=== PATIENT | male | born 1975 | race American Indian/Alaskan Native ===

== ENCOUNTER 2017-05-17 09:44 | Emergency (ER) | payer SELFPAY ==
[2017-05-17 09:59] VITALS: BP 112/73
[2017-05-17] MEDS ORDERED: MOTRIN PO ONE (11:29)
--- NOTE | 2017-05-17 11:30 | Emergency Department Report ---
Abscess Boil HPI - HPI Chief Complaint: Skin/Abscess/Foreign Body Stated Complaint: RT SHOULDER PAIN/SWELLING Time Seen by Provider: 05/17/17 11:28 Duration: >1 Week Location: Back Severity: Moderate History: Yes Pain, Yes Previous History, No Fever, No Purulent Drainage, No Numbness, No Foreign Body, No Insect Bite HPI: 41-year-old male past medical history hypertension presents with complaint of cyst/boil to his upper back region on upper right trapezius/shoulder region. Patient states that he has had a cyst there for nearly a year but it had began to hurt him over the last week. Noticed skin became slightly red around it. Denies any fever or chills. Denies any purulent drainage. Says that it formed an abscess head which has yet to drain. Golf ball sized abscess visible on patient's right lateral neck/shoulder region on trapezius area. Home Medications: Previous Rx's Medication Instructions Recorded Last Taken Type Ibuprofen [Motrin] 600 mg PO Q8H PRN #25 tablet 05/17/17 Unknown Rx Sulfamethoxazole/Trimethoprim 1 each PO BID #14 tablet 05/17/17 Unknown Rx [Bactrim DS TAB] Allergies/Adverse Reactions: Allergies Allergy/AdvReac Type Severity Reaction Status Date / Time Penicillins Allergy Swelling Verified 05/17/17 09:55 ED Review of Systems ROS: Stated complaint: RT SHOULDER PAIN/SWELLING Other details as noted in HPI Constitutional: denies: chills, fever Eyes: denies: eye pain, eye discharge, vision change ENT: denies: ear pain, throat pain Respiratory: denies: cough, shortness of breath, wheezing Cardiovascular: denies: chest pain, palpitations Endocrine: no symptoms reported Gastrointestinal: denies: abdominal pain, nausea, diarrhea Genitourinary: denies: urgency, dysuria Musculoskeletal: denies: back pain, joint swelling, arthralgia Skin: lesions (sebaceous cyst right shoulder). denies: rash Neurological: denies: headache, weakness, paresthesias Psychiatric: denies: anxiety, depression Hematological/Lymphatic: denies: easy bleeding, easy bruising ED Past Medical Hx - Past Medical History Previous Medical History?: No - Surgical History Past Surgical History?: No - Social History Smoking Status: Never Smoker Substance Use Type: None - Medications Home Medications: Home Medications Medication Instructions Recorded Confirmed Last Taken Type Ibuprofen [Motrin] 600 mg PO Q8H PRN #25 tablet 05/17/17 Unknown Rx Sulfamethoxazole/Trimethoprim 1 each PO BID #14 tablet 05/17/17 Unknown Rx [Bactrim DS TAB] ED Abscess Boil Physical Exam - Exam General: Vital signs noted. No distress. Alert and acting appropriately. Front/Back of Body, Lg (Color): 1 - Golf ball sized abscess visible in this area. Some surrounding cellulitis. Size: 5 cm Exam: Yes Tenderness, Yes Fluctuance, Yes Normal Neurologic Exam, Yes Normal Circulation, No Surrounding Cellulites/Erythema, No Lymphangitis, No Crepitation , No Heart Murmur Exam: Visible golf ball size abscess in the right upper back/ posterior shoulder region. Tender, fluctuant, mild surrounding cellulitis. Measures approximately 5-7 cm in diameter I & D Note - I & D Note I & D Note: Area infiltrated with lidocaine 2% no epi good anesthesia achieved horizontal stab incision made approximately 1.5-2 cm in length. Moderate amount of purulent and sebaceous drainage from wound site. At least 7-8 mL of drainage. Significant reduction of fluctuance and tenderness of abscess after incision and drainage. Wound culture sent. Approximately 7 inches of half- inch iodoform gauze packed into the wound. ED Course Vital Signs 05/17/17 09:56 Temperature 98.1 F Pulse Rate 65 Respiratory 17 Rate Blood Pressure 112/73 O2 Sat by Pulse 98 Oximetry Critical care attestation.: If time is entered above; I have spent that time in minutes in the direct care of this critically ill patient, excluding procedure time. ED Medical Decision Making - Medical Decision Making A/P: Incision and drainage right upper shoulder sebaceous cyst/abscess 1-good reduction achieved with I&D 2-wound culture sent 3-Bactrim 7 day course, Motrin 600 when necessary 4- 48-hour wound check in the ED. I advised patient to not leave the packing in for more than this time frame and to remove it within 48 hours or to have it removed in the ED. Patient states that he understood my instructions and would return for wound check ED Disposition Clinical Impression: Abscess of back Disposition: DC-01 TO HOME OR SELFCARE Is pt being admited?: No Does the pt Need Aspirin: No Condition: Stable Instructions: Abscess Incision and Drainage (ED), Abscess (ED), Cellulitis (ED) Additional Instructions: Patient advised to return to the ED for 48 hour wound check and packing removal Prescriptions: Ibuprofen [Motrin] 600 mg PO Q8H PRN #25 tablet PRN Reason: Pain Sulfamethoxazole/Trimethoprim [Bactrim DS TAB] 1 each PO BID #14 tablet Forms: Work/School Release Form(ED) Time of Disposition: 12:57
== END 2017-05-17 13:10 | disposition home or self-care (01) ==
LOC: ED 09:44
DX: L02.212 Cutaneous abscess of back [any part, except buttock and flank] (principal); Z88.0 Allergy status to penicillin
CPT/HCPCS: 87116

== ENCOUNTER 2017-05-18 19:36 | Emergency (ER) | payer SELFPAY ==
[2017-05-18 19:48] VITALS: BP 107/61
--- NOTE | 2017-05-18 21:28 | Emergency Department Report ---
Suture/Staple Removal - HPI Chief Complaint: Laceration/Recheck/Suture Stated Complaint: BANDAGE CHANGE/SORE ON NECK 05/17/17 Time Seen by Provider: 05/18/17 21:22 When Sutures or [place] Placed: I& D done yesterday Wound Location: post neck. pt states he was told to come back today to have packing remove ED Review of Systems ROS: Stated complaint: BANDAGE CHANGE/SORE ON NECK 05/17/17 Other details as noted in HPI Comment: All other systems reviewed and negative Constitutional: denies: chills, fever Respiratory: denies: shortness of breath Musculoskeletal: other (decrease in pain to I and D site ) Skin: other (pt unsure what skin looks like. pt has not done dressing change at home ) ED Past Medical Hx - Social History Smoking Status: Never Smoker Substance Use Type: None - Medications Home Medications: Home Medications Medication Instructions Recorded Confirmed Last Taken Type Ibuprofen [Motrin] 600 mg PO Q8H PRN #25 tablet 05/17/17 Unknown Rx Sulfamethoxazole/Trimethoprim 1 each PO BID #14 tablet 05/17/17 Unknown Rx [Bactrim DS TAB] Suture Removal Exam - Exam General: Vital signs noted. No distress. Alert and acting appropriately. Wound: Yes Tenderness, Yes Drainage, Yes Pus, No Pathologic Erythema Other Systems: All other systems reviewed and are unremarkable. Pt looks well, non toxic. post neck has I And D site in place, with packing + drainage. ED Course Vital Signs 05/18/17 19:44 Temperature 98.6 F Pulse Rate 67 Respiratory 16 Rate Blood Pressure 107/61 O2 Sat by Pulse 100 Oximetry - Reevaluation(s) Reevaluation #1: 05/18/17 21:33 PT states he was told to come back today for packing removal. PT aware that I And D site is still draining and still needs packing. PT advised to leave packing in another day. PT states he was told to return today for packing removal. PT requesting the packing be changed. old packing removed, site flushed with ns. 1/2 inch iodoform packing placed. gauze packing covered with non stick gauze and tape. pt tolerated well. PT given verbal instructions on wound care. - Pulse Oximetry Interpretation Digit-Finger Initial Pulse Oximetry Readin Actions Taken: none ED Recheck MDM - Differential Diagnosis Wound Recheck, Cutananeous Abscess reche Critical Care Time: No Critical care attestation.: If time is entered above; I have spent that time in minutes in the direct care of this critically ill patient, excluding procedure time. ED Disposition Clinical Impression: Encounter for removal of abscess packing Disposition: TO HOME OR SELFCARE Is pt being admited?: No Does the pt Need Aspirin: No Condition: Stable Instructions: Abscess Incision and Drainage (ED) Additional Instructions: continue your prescribed medication change the gauze over the packing twice a day. Warm compresses to I and D site at least 4 times a day. Return in 2 days for packing removal Return sooner if fevers, chills, nausea, vomiting or concerns Referrals: ELOY RUTLEDGE MD [Staff Physician] - 3-5 Days Forms: Work/School Release Form(ED) Time of Disposition: 21:41
== END 2017-05-18 22:00 | disposition home or self-care (01) ==
LOC: ED 19:36
DX: Z48.00 Encounter for change or removal of nonsurgical wound dressing (principal)

== ENCOUNTER 2019-12-11 07:35 | Emergency (ER) | payer BC ==
[2019-12-11 08:03] LABS: Bilirubin,Urine NEG (Negative); Blood,Urine NEG (Negative); Color,Urine Yellow (Yellow); Mucus,Urine FEW /HPF; Protein,Urine <15 mg/dL mg/dL (Negative); RBC,Urine < 1.0 /HPF (0.0-6.0); Urobilinogen,Urine < 2.0 mg/dL (<2.0); WBC,Urine < 1.0 /HPF (0.0-6.0)
[2019-12-11 08:42] LABS: Basophils % (Auto) 0.6 % (0.0-1.8); Eosinophils # (Auto) 0.4 K/mm3 (0.0-0.4); Eosinophils % (Auto) 6.6 % (0.0-4.3); Hematocrit 45.1 % (35.5-45.6); Hemoglobin 15.6 gm/dl (11.8-15.2); Lymphocytes # (Auto) 2.1 K/mm3 (1.2-5.4); Lymphocytes % (Auto) 36.1 % (13.4-35.0); Mean Corpuscular HGB Conc 35 % (32-34); Mean Corpuscular Volume 89 fl (84-94); Monocytes # (Auto) 0.5 K/mm3 (0.0-0.8); Monocytes % (Auto) 9.6 % (0.0-7.3); Platelet Count 277 K/mm3 (140-440); Red Blood Count 5.06 M/mm3 (3.65-5.03); Red Cell Distribution Width 13.4 % (13.2-15.2)
[2019-12-11 09:06] LABS: Alanine Aminotransferase 30 units/L (7-56); Albumin 4.2 g/dL (3.9-5); BUN/Creatinine Ratio 8; Blood Urea Nitrogen 7 mg/dL (9-20); Calcium 9.6 mg/dL (8.4-10.2); Hemolysis Index 38
--- NOTE | 2019-12-11 09:35 | Emergency Department Report ---
ED Abdominal Pain HPI - General Chief Complaint: Back Pain/Injury Stated Complaint: BACK/ABD PAIN Time Seen by Provider: 12/11/19 09:14 Source: patient, family Mode of arrival: Ambulatory Limitations: No Limitations - History of Present Illness Initial Comments: This is a 43-year-old male here reports flank pain and abdominal pain that radiates around to her abdomen for about 2 days. He said he noted that his abdomen was distended and does not know if it is gas that is when he went to the bathroom today only small amount of stool came out. He is not clear and his last BM. Pain ranges from 5-8 out of 10 and a can, constant. Denies any fever or chills. Denies any penile burning, blood in urine or blood in stool. Denies any nausea or vomiting. Denies any back injury. MD Complaint: abdominal pain, flank pain Onset/Timin -: days(s) Location: bilateral flank Radiation: LLQ, RLQ, other (mid abdomen) Severity: severe Severity scale (0 -10): 8 Quality: aching, fullness Consistency: constant Improves With: nothing Worsens With: nothing Context: other (unknown) Associated Symptoms: constipation. denies: nausea, vomiting, diarrhea, fever, chills, dysuria, hematemesis, hematochezia, melena, hematuria, anorexia, syncope - Related Data Previous Rx's Medication Instructions Recorded Last Taken Type Ibuprofen [Motrin] 600 mg PO Q8H PRN #25 tablet 05/17/17 Unknown Rx Sulfamethoxazole/Trimethoprim 1 each PO BID #14 tablet 05/17/17 Unknown Rx [Bactrim DS TAB] Famotidine [Pepcid] 20 mg PO BID 10 Days #5 tablet 12/11/19 Unknown Rx Ibuprofen [Motrin] 800 mg PO Q8HR PRN #12 tablet 12/11/19 Unknown Rx bisacodyL [Dulcolax] 10 mg PO DAILY PRN #4 tab 12/11/19 Unknown Rx Allergies Allergy/AdvReac Type Severity Reaction Status Date / Time Penicillins Allergy Swelling Verified 05/17/17 09:55 ED Review of Systems ROS: Stated complaint: BACK/ABD PAIN Other details as noted in HPI Constitutional: denies: chills, fever ENT: denies: throat pain, congestion Respiratory: denies: cough, shortness of breath, wheezing Cardiovascular: denies: chest pain, palpitations, edema, syncope Gastrointestinal: abdominal pain, constipation. denies: nausea, vomiting, diarrhea, hematemesis, melena, hematochezia Genitourinary: denies: urgency, dysuria, frequency, hematuria, discharge, testicular pain, testicular mass Musculoskeletal: back pain. denies: joint swelling, arthralgia Skin: denies: rash Neurological: denies: headache, numbness, paresthesias ED Past Medical Hx - Past Medical History Previous Medical History?: No - Surgical History Past Surgical History?: No - Family History Family history: no significant - Social History Smoking Status: Never Smoker Substance Use Type: Alcohol - Medications Home Medications: Home Medications Medication Instructions Recorded Confirmed Last Taken Type Ibuprofen [Motrin] 600 mg PO Q8H PRN #25 tablet 05/17/17 Unknown Rx Sulfamethoxazole/Trimethoprim 1 each PO BID #14 tablet 05/17/17 Unknown Rx [Bactrim DS TAB] Famotidine [Pepcid] 20 mg PO BID 10 Days #5 tablet 12/11/19 Unknown Rx Ibuprofen [Motrin] 800 mg PO Q8HR PRN #12 tablet 12/11/19 Unknown Rx bisacodyL [Dulcolax] 10 mg PO DAILY PRN #4 tab 12/11/19 Unknown Rx ED Physical Exam - General Limitations: No Limitations General appearance: alert, in no apparent distress - Head Head exam: Present: atraumatic - Eye Eye exam: Present: normal appearance, PERRL, EOMI Pupils: Present: normal accommodation - ENT ENT exam: Present: normal exam, normal orophraynx, mucous membranes moist, TM's normal bilaterally, normal external ear exam - Neck Neck exam: Present: normal inspection, full ROM. Absent: tenderness, lymphadenopathy - Respiratory Respiratory exam: Present: normal lung sounds bilaterally. Absent: respiratory distress, chest wall tenderness - Cardiovascular Cardiovascular Exam: Present: regular rate, normal rhythm, normal heart sounds - GI/Abdominal GI/Abdominal exam: Present: soft, distended (mild), normal bowel sounds. Absent: tenderness, guarding, rebound, rigid, organomegaly, mass, bruit, pulsatile mass, hernia ED Course Vital Signs 12/11/19 12/11/19 12/11/19 07:37 10:27 11:14 Temperature 98.0 F 98.9 F Pulse Rate 60 55 L Respiratory 16 16 16 Rate Blood Pressure 144/91 Blood Pressure 117/72 [Left] O2 Sat by Pulse 97 98 Oximetry - Reevaluation(s) Reevaluation #1: 12/11/19 11:25 Patient received morphine 4 mg IV, Zofran 8 mg IV, Toradol 30 mg IV and normal saline 1 L. He is stable in no acute problems. We reports that he feels better. ED Medical Decision Making - Lab Data Result diagrams: 12/11/19 08:11 12/11/19 08:11 Lab Results 12/11/19 12/11/19 12/11/19 Range/Units 07:40 08:11 08:11 WBC 5.7 (4.5-11.0) K/mm3 RBC 5.06 H (3.65-5.03) M/mm3 Hgb 15.6 H (11.8-15.2) gm/dl Hct 45.1 (35.5-45.6) % MCV 89 (84-94) fl MCH 31 (28-32) pg MCHC 35 H (32-34) % RDW 13.4 (13.2-15.2) % Plt Count 277 (140-440) K/mm3 Lymph % (Auto) 36.1 H (13.4-35.0) % [place] % (Auto) 9.6 H (0.0-7.3) % Eos % (Auto) 6.6 H (0.0-4.3) % Baso % (Auto) 0.6 (0.0-1.8) % Lymph # 2.1 (1.2-5.4) K/mm3 [place] # 0.5 (0.0-0.8) K/mm3 Eos # 0.4 (0.0-0.4) K/mm3 Baso # 0.0 (0.0-0.1) K/mm3 Seg Neutrophils % 47.1 (40.0-70.0) % Seg Neutrophils # 2.7 (1.8-7.7) K/mm3 Sodium 139 (137-145) mmol/L Potassium 4.3 (3.6-5.0) mmol/L Chloride 101.2 (98-107) mmol/L Carbon Dioxide 23 (22-30) mmol/L Anion Gap 19 mmol/L BUN 7 L (9-20) mg/dL Creatinine 0.9 (0.8-1.5) mg/dL Estimated GFR > 60 ml/min BUN/Creatinine Ratio 8 % Glucose 110 H (75-100) mg/dL Calcium 9.6 (8.4-10.2) mg/dL Total Bilirubin 0.80 (0.1-1.2) mg/dL AST 23 (5-40) units/L ALT 30 (7-56) units/L Alkaline Phosphatase 83 (35-129) units/L Total Protein 7.8 (6.3-8.2) g/dL Albumin 4.2 (3.9-5) g/dL Albumin/Globulin Ratio 1.2 % Lipase 14 (13-60) units/L Urine Color Yellow (Yellow) Urine Turbidity Clear (Clear) Urine pH 7.0 (5.0-7.0) Ur Specific [place] 1.012 (1.003-1.030) Urine Protein <15 mg/dl (Negative) mg/dL Urine Glucose (UA) Neg (Negative) mg/dL Urine Ketones Neg (Negative) mg/dL Urine Blood Neg (Negative) Urine Nitrite Neg (Negative) Urine Bilirubin Neg (Negative) Urine Urobilinogen < 2.0 (<2.0) mg/dL Ur Leukocyte Esterase Neg (Negative) Urine WBC (Auto) < 1.0 (0.0-6.0) /HPF Urine RBC (Auto) < 1.0 (0.0-6.0) /HPF Urine Mucus Few /HPF - Radiology Data Radiology results: report reviewed CT scan of the abdomen and pelvis without contrast dictated by radiologist and report reviewed by myself. Please see details below Print Report Referring Physician: MARTHA HALL Patient Name: HUSSAIN WEEMS Date of : 1975 Sex: Male Report Date: 2019-12-11 Report Status: Finalized Findings [facility] [address] [place] [address] Cat Scan Report Signed Patient: HUSSAIN WEEMS MR#: [id number] : 1975 Acct:[id number] Age/Sex: 43 / M ADM Date: 12/11/19 Loc: ED Attending Dr: Ordering Physician: JUAN A LEACH Date of Service: 12/11/19 Procedure(s): CT abdomen pelvis wo con Accession Number(s): [id number] cc: JUAN A LEACH CT ABDOMEN AND PELVIS WITHOUT CONTRAST INDICATION / CLINICAL INFORMATION: Abdominal and flank pain. Left-sided abdominal and flank pain x1 day. TECHNIQUE: Axial CT images were obtained through the abdomen and pelvis without IV contrast. All CT scans at this location are performed using CT dose reduction for ALARA by means of automated exposure control. COMPARISON: None available. FINDINGS: LOWER CHEST: No significant abnormality. LIVER: No significant abnormality. GALLBLADDER: No significant abnormality. BILE DUCTS: No significant abnormality. PANCREAS: No significant abnormality. SPLEEN: No significant abnormality. ADRENALS: No significant abnormality. RIGHT KIDNEY and URETER: No significant abnormality. LEFT KIDNEY and URETER: No significant abnormality. STOMACH and SMALL BOWEL: No significant abnormality. COLON: Mild diffuse colonic diverticulosis without acute inflammation. APPENDIX: No significant abnormality. PERITONEUM: No free fluid. No free air. No fluid collection. LYMPH NODES: No significant adenopathy. AORTA and ARTERIES: No significant abnormality. IVC and VEINS: No significant abnormality. URINARY BLADDER: No significant abnormality. REPRODUCTIVE ORGANS: No significant abnormality. ADDITIONAL FINDINGS: None. SKELETAL SYSTEM: No significant abnormality. IMPRESSION: 1. No inflammatory process or bowel obstruction. Mild colonic diverticulosis. 2. No urinary tract stones or hydronephrosis. Signer Name: Lisa Mckay MD Signed: 12/11/2019 10:27 AM Workstation Name: [id number] Transcribed By: DT Dictated By: Frank Mckay MD Electronically Authenticated By: Frank Mckay MD Signed Date/Time: 12/11/19 1027 DD/ 1024 TD/TT: - Medical Decision Making Patient here for bilateral flank pain does radiate into the abdomen. Physical finding is normal abdomen and no CVA tenderness. Back exam is normal. CT scan of the abdomen and pelvis without contrast shows no acute abnormalities except for diverticulosis which is chronic. Patient given pain medication and nausea medication with 1 L of IV fluid and emergency room and he is feeling better. Lab work review in stable except CBC reflects hemoconcentration, CMP is stable and urinalysis is stable. I discussed CT scan results and laboratory results the patient voiced understanding. Patient is feeling much better and I discussed with him that CT scan did not show constipation but since he is having difficulty with having bowel movements go ahead and prescribe dictation to relieve constipation. Patient voiced understanding discharged home with prescription for Motrin, Pepcid and Dulcolax and to follow-up with his primary care physician in 2 days and GI doctor in 2 days and if condition worsens to return to the emergency room. - Differential Diagnosis MARK. Colitis, renal stone, appendicitis, constipain, muscle strain Critical care attestation.: If time is entered above; I have spent that time in minutes in the direct care of this critically ill patient, excluding procedure time. ED Disposition Clinical Impression: Abdominal pain Qualifiers: Abdominal location: unspecified location Qualified Code(s): R10.9 - Unspecified abdominal pain Back pain Qualifiers: Back pain location: low back pain Chronicity: acute Back pain laterality: bilateral Sciatica presence: without sciatica Qualified Code(s): M54.5 - Low back pain Disposition: TO HOME OR SELFCARE Is pt being admited?: No Does the pt Need Aspirin: No Condition: Stable Instructions: Constipation (ED), High Fiber Diet (ED), Back Pain (ED), Abdominal Pain (ED), Diverticulosis (ED), Diverticulosis Diet (ED) Additional Instructions: Please see discharge instructions paperwork for diagnoses. Take medication as prescribed Increase fluid intake to include water to 2-3 L of water daily If your condition worsens, return to the emergency room Follow up primary care and GI doctor as instructed Referrals: FINN PEREZ JR, MD [Primary Care Provider] - 12/13/19 [facility] [Provider Group] - 12/13/19 Forms: Work/School Release Form(ED)
[2019-12-11] MEDS ORDERED: ONDANSETRON 4 MG/2 ML INJ IV ONE (09:37)
[2019-12-11] MEDS ORDERED: MORPHINE 4 MG/1 ML INJ IV ONE (09:37)
[2019-12-11] MEDS ORDERED: KETOROLAC 60 MG/2 ML INJ IVP ONE (09:37)
[2019-12-11] MEDS ORDERED: SODIUM CHLORIDE 0.9% 1000 ML 1,000 ML IV ONE (09:37)
--- NOTE | 2019-12-11 10:31 | Cat Scan Report ---
CT ABDOMEN AND PELVIS WITHOUT CONTRAST INDICATION / CLINICAL INFORMATION: Abdominal and flank pain. Left-sided abdominal and flank pain x1 day. TECHNIQUE: Axial CT images were obtained through the abdomen and pelvis without IV contrast. All CT [facility] location are performed using CT dose reduction for ALARA by means of automated exposure control. COMPARISON: None available. FINDINGS: LOWER CHEST: No significant abnormality. LIVER: No significant abnormality. GALLBLADDER: No significant abnormality. BILE DUCTS: No significant abnormality. PANCREAS: No significant abnormality. SPLEEN: No significant abnormality. ADRENALS: No significant abnormality. RIGHT KIDNEY and URETER: No significant abnormality. LEFT KIDNEY and URETER: No significant abnormality. STOMACH and SMALL BOWEL: No significant abnormality. COLON: Mild diffuse colonic diverticulosis without acute inflammation. APPENDIX: No significant abnormality. PERITONEUM: No free fluid. No free air. No fluid collection. LYMPH NODES: No significant adenopathy. AORTA and ARTERIES: No significant abnormality. IVC and VEINS: No significant abnormality. URINARY BLADDER: No significant abnormality. REPRODUCTIVE ORGANS: No significant abnormality. ADDITIONAL FINDINGS: None. SKELETAL SYSTEM: No significant abnormality. IMPRESSION: 1. No inflammatory process or bowel obstruction. Mild colonic diverticulosis. 2. No urinary tract stones or hydronephrosis. Signer Name: Lisa Mckay MD Signed: 12/11/2019 10:27 AM Workstation Name: [id number]
[2019-12-11 11:15] VITALS: BP 117/72
== END 2019-12-11 11:55 | disposition home or self-care (01) ==
LOC: ED 07:35
DX: R10.9 Unspecified abdominal pain (principal); M54.9 Dorsalgia, unspecified; F10.10 Alcohol abuse, uncomplicated; Z79.899 Other long term (current) drug therapy; Z88.0 Allergy status to penicillin
CPT/HCPCS: 36415; 74176; 80053; 81001; 83690; 85025; 96374; 96375; 99284; J1885; J2270; J2405; J7030